=== PATIENT | female | born 1945 | race Caucasian/White ===

== ENCOUNTER → 2016-05-19 | Day surgery (SDC) | payer OTHER ==
--- NOTE | 2016-05-17 08:51 | MH ---
cc: Wayne CALERO M.D. DATE OF ADMISSION 05/19/2016 ADMITTING DIAGNOSIS Torn meniscus right knee now for arthroscopy right knee. HISTORY OF THE PRESENT ILLNESS This pleasant 70-year-old female is being admitted today for arthroscopy right knee due to torn medial and lateral menisci. PAST MEDICAL HISTORY Other past history: 1. The patient has a history of anxiety. 2. Fibromyalgia. 3. Hiatal hernia. 4. Hypertension. 5. Thyroid problems. MEDICATIONS Include: 1. Metoprolol. 2. Hydrochlorothiazide. 3. Lisinopril drops for glaucoma. PAST SURGICAL HISTORY Previous surgery: 1. Meniscectomy right knee years ago. 2. Cataract surgery. REVIEW OF SYSTEMS Noncontributory. FAMILY HISTORY Noncontributory. SOCIAL HISTORY She does not smoke or drink. ALLERGIES SHE IS ALLERGIC TO AMOXICILLIN, BACTRIM, ASPIRIN, ERYTHROMYCIN NEOMYCIN, NIASPAN, STATINS, TRICOR, VITAMIN D3, FIBRATES, TRIMETHOPRIM. PHYSICAL EXAMINATION GENERAL: We find a 70-year-old female, well-developed, well-nourished, alert and oriented times three. Complaining of pain in the right knee. VITAL SIGNS: Blood pressure 134/80, pulse 68 and regular, respirations 20, temperature 97.6, pulse oximetry 97% on room air. HEENT: Eyes PERRL, EOMI. Ears, nose, mouth clear. NECK: Supple. LUNGS: Clear. HEART: Regular rate. ABDOMEN: Soft. Positive bowel sounds. Nontender. EXTREMITIES: Reveal the right to be tender on the medial lateral joint margins. Neurovascularly intact to her toes. ASSESSMENT MRI of her right knee done March 20, 2016 at [facility] [place], [place] revealed irregular tear involving the posterior horn and body of the lateral meniscus, small defect from the undersurface of the posterior horn to the medial meniscus along with chondromalacia patellofemoral joint and lateral compartment. The patient given prescription for postoperative pain control in the office and understands the use of Hibiclens scrub and Bactroban preoperatively. JMD KATHERINE Mcmanus/ELIO /4:38 PM /8:45 AM
[~2016-05-19] VITALS: Ht 157.5 cm; Wt 100.5 kg
[~2016-05-19] MED LIST: *morphine SULFATE 8 MG/ML PERIprocedure ONLY ONE; ACETAMINOPHEN 1000 MG/100 ML VIAL IV ONE; BRIM.2%O OU; BRIM0.2S4 EACH EYE; BUPIVACAINE HCL PF 0.25% 30 ML VIAL ONE; CHLORHEXIDINE GLUCONATE 4% SOLN 120 ML BTL TOP SCH; CLINDAMYCIN 900 MG/NS 100 ML IV SCH; FAMOTIDINE 20 MG/2 ML VIAL ONE; HYDR12.56 PO; HYDR50TA3 PO; IBUP200T2 PO; INSULIN HUMAN REGULAR 1,000 UNITS/10 ML VIAL SQ PRN; LACTATED RINGER'S 1000 ML IV SCH; LEVO50TA4 PO; LISI-515 PO; METO50TA PO; METOPROLOL TARTRATE 25 MG TAB PO PRN; MIDAZOLAM HCL 2 MG/2 ML VIAL ONE; MOTR200T PO; ONDANSETRON HCL 4 MG/2 ML VIAL IV PUSH ONE; PANT20 PO; PROPOFOL 200 MG/20 ML AMP IV ONE; PROT40TA PO; SODIUM CHLORID 0.9% 500 ML IV SCH; SODIUM CHLORIDE 0.9% INJ 100 ML ONE; TOPR50TA PO; TRAV0.00 BOTH EYES; TRAV0.00 EACH EYE; ePHEDrine/NS 25 MG/5 ML SYR IV ONE; fentaNYL CITRATE 250 MCG/5 ML AMP ONE
[2016-05-19 06:56] VITALS: BP 123/69; PULSE 54; RESP 18; TEMP 97.7; O2SAT 97
[2016-05-19 07:02] LABS: BLOOD, URINE NEG (NEG); GLUCOSE,URINE NEG (NEG); KETONE, URINE NEG (NEG); MUCUS URINE FEW /lpf (OCC); NITRITE,URINE NEG (NEG); PH, URINE 7.5 (5.0-8.5); SQUAMOUS EPITHELIAL CELL URINE <1 /hpf (0-5); URINE COLOR YELLOW (YELLW/STRAW)
[2016-05-19 07:03] LABS: AUTOMATED NEUTROPHIL # 5.6 TH/MM3 (1.8-7.7); BASOPHIL # 0.1 TH/MM3 (0-0.2); BASOPHIL % 0.6 % (0.0-2.0); EOSINOPHIL # 0.2 TH/MM3 (0-0.4); EOSINOPHIL % 2.2 % (0.0-4.0); HEMATOCRIT 40.5 % (35.0-46.0); HEMO FLAGS DIFF FINAL; LYMPH % 37.5 % (9.0-44.0); MEAN CELL VOLUME 90.6 FL (80.0-100.0); MEAN CORPUSCULAR HEMOGLOBIN 30.2 PG (27.0-34.0); MEAN CORPUSCULAR HGB CONC 33.3 % (32.0-36.0); MONO % 7.2 % (0.0-8.0); NEUT % 52.5 % (16.0-70.0); PLATELET COUNT 337 TH/MM3 (150-450); RED BLOOD COUNT 4.47 MIL/MM3 (4.00-5.30); RED CELL DISTRIBUTION WIDTH 12.5 % (11.6-17.2); WHITE BLOOD COUNT 10.7 TH/MM3 (4.0-11.0)
[2016-05-19 07:07] LABS: COMMENT (UR) CATH-CULT NOT IND; CULTURE IF INDICATED CATH CULTURE NOT IND
[2016-05-19 07:17] LABS: APTT (PATIENT) 26.2 SEC (24.3-30.1); INTERNATIONAL NORMALIZED RATIO 0.9 RATIO; PROTHROMBIN TIME - PATIENT 10.4 SEC (9.8-11.6)
[2016-05-19 07:35] LABS: ANION GAP 8 MEQ/L (5-15); AST (GOT) 10 U/L (15-37); BICARBONATE 30.5 MEQ/L (21.0-32.0); BLOOD UREA NITROGEN 15 MG/DL (7-18); CHLORIDE 102 MEQ/L (98-107); GLOMERULAR FILTRATION RATE 54 ML/MIN (>89); SODIUM (NA) 140 MEQ/L (136-145)
[2016-05-19 07:38] LABS: ALKALINE PHOSPHATASE 86 U/L (45-117); ALT (GPT) 17 U/L (10-53); TOTAL BILIRUBIN ADULT 0.5 MG/DL (0.2-1.0)
[2016-05-19 11:04] VITALS: BP 130/77; PULSE 63; RESP 16; TEMP 97.5; O2SAT 97
--- NOTE | 2016-05-19 15:22 | EKG ---
Date Performed: 05/19/2016 Time Performed: 06:59:41 PTAGE: 70 years EKG: SINUS BRADYCARDIA WITH FIRST DEGREE AV BLOCK LOW QRS VOLTAGE IN PRECORDIAL LEADS ABNORMAL E CG PREVIOUS TRACING : 03/02/2008 14.26 Compared to previous tracing, the patient is now bradycardi c. DOCTOR: Kaur Grande Interpretating Date/Time 05/19/2016 15:21:58
--- NOTE | 2016-05-21 10:47 | MP ---
cc: Wayne BELL M.D. DATE OF SURGERY: 05/19/2016 PREOPERATIVE DIAGNOSIS Torn lateral meniscus, right knee. POSTOPERATIVE DIAGNOSIS Torn lateral meniscus, right knee, chondromalacia lateral compartment and plica superior medial patellofemoral joint. SURGERY PERFORMED Arthroscopy, excision of torn lateral meniscus, ArthroCare shaving of the lateral compartment including chondroplasty of the weightbearing surface lateral compartment and excision of plica superior medial patellofemoral joint. SURGEON Dr. Bell. ANESTHESIA LMA. PROCEDURE The patient was brought to the operating room and placed on the operating room table in the supine position. After successful induction of general anesthesia, the patient's ?? leg was prepped and draped in the usual manner. The knee was then placed in a knee martinez and tightened. Arthroscopic examination was then performed by making a stab wound over the proximal superior and medial aspect of the patellofemoral joint for insertion of the inflow cannula and fluid, followed by stab wounds over the medial and lateral joint margins respectively for insertion of the arthroscope, shaver and probe. Arthroscopic examination was then performed which revealed intact medial compartment, intact medial meniscus and intact anterior cruciate lateral compartment and found to have grade 3 chondromalacia changes, shaved smooth using the ArthroCare system. A large tear of the lateral meniscus posterior and most lateral portion was noted and removed using ArthroCare cutter shaver probe to afford smooth surface. The rest of the lateral compartment was found to be intact. The patellofemoral joint was mostly intact. Superior medial plica noted which was removed in the patellofemoral joint. The rest of the knee joint was intact. The wound was irrigated copiously with lactated Ringer's solution. Excess fluid was removed. 10 ccs of 0.25% Marcaine was inserted in the knee joint. Skin was approximated with interrupted 3-0 Nylon suture. Wet and then dry dressing was applied to the wound followed by Xeroform gauze, sterile dressing, thigh-high Tato wrap. No tourniquet was utilized. Estimated blood loss was 10 ccs. Sponge and suture count were correct. The patient tolerated the procedure well and left the operating room in satisfactory condition. J. MD KATHERINE Hernandez/GIANNI /9:01 AM /10:33 AM
== END | disposition home or self-care (01) ==
LOC: HSDC 06:06
PROVIDERS: ATTEND Surgery
DX: S83.281A Other tear of lateral meniscus, current injury, right knee, initial encounter (principal); M94.261 Chondromalacia, right knee; M67.51 Plica syndrome, right knee; M79.7 Fibromyalgia; I10 Essential (primary) hypertension; Z88.0 Allergy status to penicillin
CPT/HCPCS: 01400; 29881; 80053; 81001; 85025; 85610; 85730; 93005; J0131; J2250; J2270; J2405; J3010; J7120